=== PATIENT | male | born 1980 | race Caucasian/White ===

== ENCOUNTER 2016-10-22 15:10 | Emergency (ER) | payer BC ==
[~2016-10-22] VITALS: Ht 190.5 cm; Wt 83.9 kg
[2016-10-22 18:18] VITALS: BP 137/76
== END 2016-10-22 18:31 | disposition home or self-care (01) ==
LOC: ED 15:10
DX: S63.614A Unspecified sprain of right ring finger, initial encounter (principal); S50.812A Abrasion of left forearm, initial encounter; M79.644 Pain in right finger(s); V49.9XXA Car occupant (driver) (passenger) injured in unspecified traffic accident, initial encounter; Y93.89 Activity, other specified; Y99.8 Other external cause status; Y92.89 Other specified places as the place of occurrence of the external cause
CPT/HCPCS: A4570